=== PATIENT | male | born 1985 | race Caucasian/White ===

== ENCOUNTER 2018-10-08 19:07 | Inpatient (IN) | payer SELFPAY ==
[~2018-10-08 19:07] MED LIST: EPINEPHRINE INJ/PF 1 MG/1 ML AMPULE ONE; ETOMIDATE INJ/PF 20 MG/10 ML SDV IV ONE; SUCCINYLCHOLINE CHLORIDE INJ 200 MG/10 ML VIAL ONE
[2018-10-08] MEDS ORDERED: EPINEPHRINE INJ/PF 1 MG/1 ML AMPULE ONE (19:36)
[2018-10-08] MEDS ORDERED: RACEPINEPHRINE HCL 2.25% NEB 0.5 ML AMPUL NEB ONE (19:44)
--- NOTE | 2018-10-08 19:48 | RADIOLOGY REPORT (SQ) ---
EXAM DESCRIPTION: CHEST SINGLE VIEW COMPLETED DATE/TIME: 10/08/2018 7:39 pm REASON FOR STUDY: difficulty breathing COMPARISON: Chest x-ray 03/01/2018 EXAM PARAMETERS: NUMBER OF VIEWS: One view. TECHNIQUE: Single frontal radiographic view of the chest acquired. RADIATION DOSE: NA LIMITATIONS: None. FINDINGS: LUNGS AND PLEURA: No consolidation, pneumothorax or pleural effusion. MEDIASTINUM AND HILAR STRUCTURES: No masses. Contour normal. HEART AND VASCULAR STRUCTURES: The heart is upper normal limit in size. No overt vascular congestion . BONES: No acute findings. HARDWARE: None in the chest. IMPRESSION: NO ACUTE RADIOGRAPHIC FINDING IN THE CHEST. TECHNICAL DOCUMENTATION: JOB ID: [id number] [employer]- All Rights Reserved Reading location - IP/workstation name: [email or web address]
[2018-10-08] MEDS ORDERED: ALBUTEROL SULFATE 0.083% NEB 2.5 MG/3 ML AMPUL NEB ONE (19:54)
--- NOTE | 2018-10-08 19:55 | ER Document Report ---
ED General - General Stated Complaint: TROUBLE BREATHING Time Seen by Provider: 10/08/18 19:40 Cannot obtain history due to: Unstable vital signs Notes: Patient is a 33-year-old male with a past history of sleep apnea, hyperlipidemia, presents in severe distress, hypotensive, unable to provide reasonable history. EMS reports that he was bit by fire ants, went to [facility] [employer] to buy Benadryl. Staff there noted he looked very unwell, followed him out to his vehicle and 911 was called. EMS states that when they got there the patient was minimally responsive, did not have a palpable radial pulse and they could not obtain a blood pressure. Initial oxygen saturations were in the 70s. No history of similar episodes apparently in the past. History was otherwise very limited secondary to the degree of the patient's hemodynamic instability on presentation. TRAVEL OUTSIDE OF THE [place] IN LAST 30 DAYS: No - Related Data Allergies/Adverse Reactions: fire ant Allergy (Severe, Verified 10/08/18 20:35) Anaphylaxis Past Medical History - General Information source: Emergency Med Personnel Cannot obtain history due to: Unstable vital signs, Altered mental status - Social History Smoking Status: Unknown if Ever Smoked Family History: CAD, Hypertension Neurological Medical History: Denies: Hx Migraine, Hx Seizures Endocrine Medical History: Denies: Hx Diabetes Mellitus Type 1, Hx Diabetes Mellitus Type 2, Hx Hyperthyroidism, Hx Hypothyroidism Renal/ Medical History: Denies: Hx Peritoneal Dialysis GI Medical History: Reports: Hx Gastroesophageal Reflux Disease Musculoskeletal Medical History: Denies Hx Fibromyalgia, Denies Hx Gout Review of Systems - Review of Systems Notes: Constitutional: Negative for fever. HENT: Negative for sore throat. Eyes: Negative for visual changes. Cardiovascular: Negative for chest pain. Respiratory: Positive shortness of breath Gastrointestinal: Negative for abdominal pain, positive for nausea Genitourinary: Negative for dysuria. Musculoskeletal: Negative for back pain. Skin: Positive for rash. Neurological: Negative for headaches, weakness or numbness. 10 point ROS negative except as marked above and in HPI. Physical Exam - Vital signs Vitals: Pulse Resp BP Pulse Ox 119 H 35 H 143/117 H 94 10/08/18 19:07 10/08/18 19:07 10/08/18 19:07 10/08/18 19:07 Interpretation: Hypotensive, Tachycardic, Hypoxic, Tachypneic Notes: PHYSICAL EXAMINATION: GENERAL: Extremely ill in appearance, pale, diaphoretic somewhat listless HEAD: Atraumatic, normocephalic. EYES: Pupils equal round and reactive to light, extraocular movements intact, sc dennis anicteric, conjunctiva are normal. ENT: nares patent, oropharynx clear without exudates. Mildly dry mucous membranes. NECK: Normal range of motion, supple without lymphadenopathy LUNGS: Moderate tachypnea, scattered wheezing in all lung carreon with diminished air movement throughout. HEART: Regular tachycardia without murmurs ABDOMEN: Soft, nontender, normoactive bowel sounds. No guarding, no rebound. No masses appreciated. EXTREMITIES: Normal range of motion, no pitting or edema. No cyanosis. NEUROLOGICAL: No focal neurological deficits. Moves all extremities spontaneously and on command. PSYCH: Somewhat listless but answers all questions SKIN: Cool, pale, diaphoretic skin Course - Re-evaluation Re-evalutation: 10/08/18 19:48 Documentation is delayed as I been at this patient's bedside continuously since arrival to the emergency department. Patient presents as a severe anaphylactic reaction. EMS reports that initially the patient had no palpable radial pulse, they could not obtain a blood pressure, he was not moving air, covered diffusely in hives after being bit by fire ants. Patient was itching profusely. Was given famotidine, Benadryl, Solu-Medrol and 3 shots of intramuscular epinephrine . He was also given an IV push of IV epinephrine 100 mcg. He did have significant improvement of his blood pressure, initially saturating 70% on room air, gradually improved into the upper 80s low 90s. On arrival the patient is pale, diaphoretic, extremely ill in appearance. He is saturating in the mid 80s on a continuous nebulized albuterol inhaler with ongoing oxygen supplementation. Immediately upon arrival the patient was noted to be hypotensive systolics in the 90s. He was connected to an IV epinephrine infusion which has been continuously running since arrival. The patient's blood pressure did normalize, has maintained into the 130s-140s however he continues to be persistently h ypoxic. Patient was initially trialed on nasal cannula, nonrebreather and then initially transitioned to. However despite the patient's blood pressure does continue to be acceptable ranges is saturations continue to range from 88-90 on 100% FiO2 12 on 6. Chest x-ray without any evidence of pneumothorax, infiltrate or pulmonary edema. EKG without ischemic changes. The patient is critically ill, I continue to remain at his bedside almost on a continuous basis at this time. 10/08/18 19:59 Patient is becoming fatigued, stating it is harder for him to continue breathing. His oxygen saturations despite 100% FiO2 16 on 6 BiPAP settings will not improve beyond 88%. Patient's blood pressure has responded appropriately to his epinephrine infusion 163/69 currently he continues to be without any significant stridor or wheezing. The clinical picture is extremely consistent with anaphylaxis although his response to epinephrine in terms of his respiratory status is suboptimal. I have considered alternative diagnoses such as a pulmonary embolus but this does not make clinical sense as the patient is not having any pleuritic pain, had hives on initial presentation with EMS, symptoms are immediate after being bit by fire ants, the chest x-ray does not demonstrate any evidence of pneumothorax or infiltrates. He does not have any pulmonary edema. I am concerned about proceeding with intubation as patient is hypoxic to start with and has multiple airway risk factors including obesity, a antoine, and is high risk for we will continue to keep BiPAP on patient continuously during the episode and put on nasal cannula on to continue supplemental oxygen during rSI. 10/08/18 20:19 RSI was held off as as I was beginning to prep to shave the patient's neck, applied with ChloraPrep in the event that a cricothyrotomy would be necessitated, getting airway, and ready the patient saturations abruptly increased to 100%. The patient had been pulling good tidal volumes on BiPAP and I do not believe that this was him going from being somewhat awake as he had continued to be speaking and breathing the entire time. It appears that we may have finally got over the flexor cascade with aggressive dosing of epinephrine is appearing to normalize all of his vitals. We are weaning down his FiO2 and will begin to wean his epinephrine infusion. Patient does remain in very guarded condition but I do not believe he requires RSI this time. 10/08/18 20:50 Continue to assess the patient at regular intervals. His epinephrine drip has been weaned although is not yet completely off. He is saturating 94% on 30% FiO2 by BiPAP. I will transition him to nasal cannula, continue epinephrine drip and continue the slow weaning process. 10/08/18 20:56 I have taken the patient off BiPAP, started on 3 L nasal cannula and saturations of 95-96%. After 141/101 on epinephrine infusion. Will continue to titrate off. 10/08/18 21:27 Patient began to have some throat tightness, saturations decreased to 91% on 3 L by nasal cannula. His epinephrine drip was titrated and he had complete normalization saturations back to 98% at this time. He states this likewise immediately resolved his throat tightness. Will continue to keep the epinephrine infusion at the increased rate. 10/08/18 21:58 Patient's blood pressure remains in acceptable range at 139 on 69 although he continues on epinephrine infusion. Saturating 96-99% on 3 L by nasal cannula. Continue to work to down titrate epinephrine. 10/08/18 22:43 Patient's epinephrine drip has been shut off for a total of 43 minutes. Patient is tolerating this well. He was placed back on BiPAP as when he falls asleep and he does have sleep apnea baseline his saturations do fall into the 80s. When I wake him up on the nasal cannula he immediately saturates back to normal levels. He does wear BiPAP at home and this is been replaced so that he can avoid hypoxic events while sleeping. I discussed this case with Dr. Ceron who has accepted the patient to the ICU. - Vital Signs Vital signs: Temp Pulse Resp BP Pulse Ox 98.9 F 112 H 20 138/81 H 97 10/09/18 01:46 10/09/18 01:46 10/09/18 03:00 10/09/18 02:38 10/09/18 03:00 - Laboratory Result Diagrams: 10/09/18 03:02 10/09/18 03:02 Laboratory results interpreted by me: 10/08/18 10/08/18 19:09 19:09 WBC 21.6 H RBC 5.64 H Hgb 17.6 H Hct 51.8 H Abs Neuts (Manual) 11.9 H Abs Lymphs (Manual) 7.8 H Potassium 3.2 L Carbon Dioxide 15 L Glucose 226 H - EKG Interpretation by Me Additional EKG results interpreted by me: 10/09/18 05:10 Sinus tachycardia, rate 118. No ST elevations or depressions. QTC is 466. Critical Care Note - Critical Care Note Total time excluding time spent on procedures (mins): 120 Comments: Critical care time spent obtaining history from patient or surrogate, discussions with consultants, development of treatment plan with patient or surrogate, evaluation of patient's response to treatment, examination of patient, ordering and performing treatments and interventions, ordering and review of laboratory studies, re-evaluation of patient's condition, ordering and review of radiographic studies and review of old charts Discharge - Discharge Clinical Impression: Anaphylactic shock, Acute respiratory failure with hypoxia Condition: Fair Disposition: ADMITTED INPATIENT Admitting Provider: Osmany (Hospitalist) Unit Admitted: ICU
[2018-10-08] MEDS ORDERED: ETOMIDATE INJ/PF 20 MG/10 ML SDV IV ONE (19:58)
[2018-10-08] MEDS ORDERED: PROPOFOL 0 MG/0 ML INFUS..BTL IV ONE (20:05)
[2018-10-08 20:07] LABS: HEMATOCRIT 51.8 % (37.9-51.0); HEMOGLOBIN 17.6 g/dL (13.5-17.0); MEAN CORPUSCULAR HEMOGLOBIN 31.1 pg (27.0-33.4); MEAN CORPUSCULAR HGB CONC 33.9 g/dL (32.0-36.0); MEAN CORPUSCULAR VOLUME 92 fl (80-97); PLATELET COUNT 428 10^3/uL (150-450); RED BLOOD COUNT 5.64 10^6/uL (4.35-5.55); RED CELL DISTRIBUTION WIDTH 12.9 % (11.5-14.0); WHITE BLOOD COUNT 21.6 10^3/uL (4.0-10.5)
[2018-10-08 20:17] LABS: ANION GAP 17 (5-19); BLOOD UREA NITROGEN 14 mg/dL (7-20); CALCIUM 9.2 mg/dL (8.4-10.2); CARBON DIOXIDE 15 mmol/L (22-30); CHLORIDE 107 mmol/L (98-107); GLUCOSE 226 mg/dL (75-110); POTASSIUM 3.2 mmol/L (3.6-5.0); SODIUM 139.2 mmol/L (137-145)
[2018-10-08 20:23] LABS: ABSOLUTE LYMPHOCYTES# (MANUAL) 7.8 10^3/uL (0.5-4.7); ABSOLUTE MONOCYTES # (MANUAL) 1.3 10^3/uL (0.1-1.4); ABSOLUTE NEUTROPHILS# (MANUAL) 11.9 10^3/uL (1.7-8.2); BASOPHILS % (MANUAL) 0 % (0-2); EOSINOPHILS % (MANUAL) 3 % (0-6); LYMPHOCYTES % (MANUAL) 36 % (13-45); MONOCYTES % (MANUAL) 6 % (3-13); SEGMENTED NEUTROPHILS % (MAN) 55 % (42-78); TOTAL CELLS COUNTED 100
[2018-10-08 20:24] LABS: PLATELET COMMENT ADEQUATE
[2018-10-08 20:28] LABS: RBC MORPHOLOGY COMMENT NORMO-CYTIC/CHROMIC
[2018-10-08] MEDS ORDERED: ONDANSETRON HCL INJ/PF 4 MG/2 ML SDV IV PRN (22:50)
[2018-10-08] MEDS ORDERED: IPRATROPIUM/ALBUTEROL 0.5-2.5 MG/3 ML AMPUL NEB PRN (22:50)
[2018-10-08] MEDS ORDERED: ACETAMINOPHEN 650 MG SUPP.RECT PR PRN (22:50)
[2018-10-08] MEDS ORDERED: FAMOTIDINE INJ/PF 20 MG/2 ML SDV IV ONE (23:00)
[2018-10-08] MEDS ORDERED: METHYLPREDNISOLONE INJ 125 MG/2 ML SDV IV ONE (23:00)
[2018-10-08] MEDS: POTASSI CL 20 MEQ/50 ML RIDER 20 MEQ/50 ML RTUPB IV SCH (23:16)
[2018-10-08] MEDS: DIPHENHYDRAMINE HCL 50 MG/ML VIAL IV PRN (23:25)
[2018-10-09] MEDS ORDERED: PANTOPRAZOLE SODIUM 40 MG VIAL IV ONE (00:15)
[2018-10-09] MEDS ORDERED: METOPROLOL TARTRATE PF/INJ 5 MG/5 ML SDV IV ONE (00:17)
[2018-10-09] MEDS: IPRATROPIUM/ALBUTEROL 0.5-2.5 MG/3 ML AMPUL NEB SCH ×3 (00:37→16:10)
[2018-10-09] MEDS: POTASSI CL 20 MEQ/50 ML RIDER 20 MEQ/50 ML RTUPB IV SCH (02:38)
--- NOTE | 2018-10-09 03:19 | PDOC H&P ---
History of Present Illness Admission Date/PCP: 10/08/18 23:19 Patient complains of: Shortness of breath History of Present Illness: CHARLINE AMBROSE is a 33 year old male with a past medical history of hypertension, dyslipidemia, GERD and morbid obesity without current medications presents with severe anaphylactic reaction after envenomation by fire ants. Patient developed widespread and diffuse hives, generalized pruritus followed by shortness of breath prompting evaluation emergency room where he is found to have severe respiratory distress, tachypnea, tachycardia requiring 2 mg of IV epinephrine, Pepcid, Benadryl, Solu-Medrol. He is referred to the hospitalist for admission. Patient denies previous anaphylactic reaction, and is without known triggers of allergic reaction. He denies new medications and is otherwise felt well. During interview patient complains of chest pain somewhat reminiscent of uncontrolled GERD. He receives 5 mg of IV Lopressor, and Protonix. EKG is unremarkable. Past Medical History Cardiac Medical History: Reports: Hyperlipidema, Hypertension Neurological Medical History: Denies: Migraine, Seizures Endocrine Medical History: Reports: Obesity Denies: Diabetes Mellitus Type 1, Diabetes Mellitus Type 2, Hyperthyroidism, Hypothyroidism GI Medical History: Reports: Gastroesophageal Reflux Disease Musculoskeltal Medical History: Denies: Fibromyalgia, Gout Hematology: Reports: Anemia Social History Information Source: Patient, Emergency Med Personnel, [facility] Records Smoking Status: Current Some Day Smoker Frequency of Alcohol Use: Occasional Hx Recreational Drug Use: No Drugs: None Hx Prescription Drug Abuse: No - Advance Directive Resuscitation Status: Full Code Family History Family History: CAD, Hypertension Parental Family History Reviewed: Yes Children Family History Reviewed: Yes Sibling(s) Family History Reviewed.: Yes Medication/Allergy Home Medications: No Home Medications 10/08/18 Allergies/Adverse Reactions: fire ant Allergy (Severe, Verified 10/08/18 20:35) Anaphylaxis Review of Systems Constitutional: ABSENT: chills, fever(s), headache(s), weight gain, weight loss Eyes: ABSENT: visual disturbances Ears: ABSENT: hearing changes Cardiovascular: ABSENT: chest pain, dyspnea on exertion, edema, orthropnea, palpitations Respiratory: ABSENT: cough, hemoptysis Gastrointestinal: ABSENT: abdominal pain, constipation, diarrhea, hematemesis, hematochezia, nausea, vomiting Genitourinary: ABSENT: dysuria, hematuria Musculoskeletal: ABSENT: joint swelling Integumentary: ABSENT: rash, wounds Neurological: ABSENT: abnormal gait, abnormal speech, confusion, dizziness, foc al weakness, syncope Psychiatric: ABSENT: anxiety, depression, homidical ideation, suicidal ideation Endocrine: ABSENT: cold intolerance, heat intolerance, polydipsia, polyuria Hematologic/Lymphatic: ABSENT: easy bleeding, easy bruising Physical Exam Vital Signs: Temp Pulse Resp BP Pulse Ox 98.9 F 112 H 20 138/81 H 97 10/09/18 01:46 10/09/18 01:46 10/09/18 03:00 10/09/18 02:38 10/09/18 03:00 Intake & Output 10/07/18 10/08/18 10/09/18 11:59 11:59 11:59 Intake Total 50 Output Total 325 Balance -275 Weight 158.3 kg General appearance: PRESENT: cooperative, mild distress, morbidly obese, other - Diaphoretic Head exam: PRESENT: atraumatic, normocephalic Eye exam: PRESENT: conjunctiva pink, EOMI, PERRLA. ABSENT: scleral icterus Ear exam: PRESENT: normal external ear exam Mouth exam: PRESENT: moist, tongue midline Neck exam: ABSENT: carotid bruit, JVD, lymphadenopathy, thyromegaly Respiratory exam: PRESENT: clear to auscultation woody, symmetrical, tachypnea. ABSENT: rales, rhonchi, wheezes Cardiovascular exam: PRESENT: gallop, +S1, +S2, tachycardia Pulses: PRESENT: normal dorsalis pedis pul Vascular exam: PRESENT: normal capillary refill GI/Abdominal exam: PRESENT: normal bowel sounds, soft. ABSENT: distended, guarding, mass, organolmegaly, rebound, tenderness Rectal exam: PRESENT: deferred Extremities exam: PRESENT: full ROM. ABSENT: calf tenderness, clubbing, pedal edema Neurological exam: PRESENT: alert, awake, oriented to person, oriented to place, oriented to time, oriented to situation, CN II-XII grossly intact. ABSENT: motor sensory deficit Psychiatric exam: PRESENT: appropriate affect, normal mood. ABSENT: homicidal ideation, suicidal ideation Skin exam: PRESENT: dry, intact, warm. ABSENT: cyanosis, rash Results Laboratory Results: 10/08/18 19:09 10/08/18 19:09 10/08/18 10/08/18 10/08/18 19:09 19:09 19:09 WBC 21.6 H RBC 5.64 H Hgb 17.6 H Hct 51.8 H MCV 92 MCH 31.1 MCHC 33.9 RDW 12.9 Plt Count 428 Seg Neutrophils % Not Reportable Lymphocytes % Not Reportable Monocytes % Not Reportable Eosinophils % Not Reportable Basophils % Not Reportable Absolute Neutrophils Not Reportable Absolute Lymphocytes Not Reportable Absolute Monocytes Not Reportable Absolute Eosinophils Not Reportable Absolute Basophils Not Reportable Sodium 139.2 Potassium 3.2 L Chloride 107 Carbon Dioxide 15 L Anion Gap 17 BUN 14 Creatinine 1.16 Est GFR ( Amer) > 60 Est GFR (Non-Af Amer) > 60 Glucose 226 H Calcium 9.2 Magnesium 2.0 Impressions: Chest X-Ray 10/08/18 00:00 IMPRESSION: NO ACUTE RADIOGRAPHIC FINDING IN THE CHEST. Assessment and Plan - Diagnosis (1) Anaphylactic shock Is this a current diagnosis for this admission?: Yes Plan: ICU admission, as needed epinephrine IM, continue Pepcid, Benadryl, Solu-Medrol. Education for avoidance of fire ants. (2) Acute respiratory failure with hypoxia Is this a current diagnosis for this admission?: Yes Plan: Secondary to #1, supplemental oxygen, incentive spirometry, n.p.o. times 6 hours. (3) Chest pain at rest Is this a current diagnosis for this admission?: Yes Plan: Complicated by anaphylaxis, tachycardia, risk factors for coronary artery disease and noncompliance of medical management of chronic hypertension, dyslipidemia and tobacco dependence. Follow-up serial cardiac enzymes (4) Hyperlipidemia Qualifiers: Hyperlipidemia type: mixed hyperlipidemia Qualified Code(s): E78.2 - Mixed hyperlipidemia Is this a current diagnosis for this admission?: Yes Plan: Lipitor (5) Morbid obesity Is this a current diagnosis for this admission?: Yes Plan: Morbid obesity will evaluate for metabolic cause with evaluation of thyroid function and dietitian consultation (6) Tobacco abuse disorder Is this a current diagnosis for this admission?: Yes Plan: Tobacco Dependence patient received tobacco cessation counseling and offered nicotine replacement options - Time Time Spent with patient: 35 or more minutes - Inpatient Certification Medical Necessity: Need Close Monitoring Due to Risk of Patient Decompensation
[2018-10-09 03:34] LABS: HEMATOCRIT 50.9 % (37.9-51.0); HEMOGLOBIN 17.3 g/dL (13.5-17.0); MEAN CORPUSCULAR HEMOGLOBIN 30.8 pg (27.0-33.4); MEAN CORPUSCULAR HGB CONC 33.9 g/dL (32.0-36.0); MEAN CORPUSCULAR VOLUME 91 fl (80-97); PLATELET COUNT 284 10^3/uL (150-450); RED BLOOD COUNT 5.61 10^6/uL (4.35-5.55); RED CELL DISTRIBUTION WIDTH 12.5 % (11.5-14.0); WHITE BLOOD COUNT 19.1 10^3/uL (4.0-10.5)
[2018-10-09 03:57] LABS: CREATINE KINASE MB 3.67 ng/mL (<4.55)
[2018-10-09 03:58] LABS: ABSOLUTE LYMPHOCYTES# (MANUAL) 0.8 10^3/uL (0.5-4.7); ABSOLUTE MONOCYTES # (MANUAL) 1.1 10^3/uL (0.1-1.4); ABSOLUTE NEUTROPHILS# (MANUAL) 17.2 10^3/uL (1.7-8.2); BASOPHILS % (MANUAL) 0 % (0-2); EOSINOPHILS % (MANUAL) 0 % (0-6); LYMPHOCYTES % (MANUAL) 4 % (13-45); METAMYELOCYTES % (MANUAL) 1 % (0); MONOCYTES % (MANUAL) 6 % (3-13); SEGMENTED NEUTROPHILS % (MAN) 78 % (42-78); TOTAL CELLS COUNTED 100; TROPONIN I 0.159 ng/mL
[2018-10-09 04:00] LABS: PLATELET CLUMPS PRESENT
[2018-10-09 04:04] LABS: BAND NEUTROPHILS % (MANUAL) 11 % (3-5); RBC MORPHOLOGY COMMENT NORMO-CYTIC/CHROMIC
[2018-10-09 04:09] LABS: ANION GAP 10 (5-19); BLOOD UREA NITROGEN 16 mg/dL (7-20); CALCIUM 9.1 mg/dL (8.4-10.2); CARBON DIOXIDE 20 mmol/L (22-30); CHLORIDE 107 mmol/L (98-107); GLUCOSE 290 mg/dL (75-110); SODIUM 137.1 mmol/L (137-145)
[2018-10-09 04:34] LABS: POTASSIUM 5.3 mmol/L (3.6-5.0)
[2018-10-09] MEDS: HEPARIN SOD (PORCINE) 5,000 UNIT/ML 1 ML SYRINGE SUBCUT SCH ×3 (05:31→21:52)
[2018-10-09] MEDS ORDERED: METHYLPREDNISOLONE INJ 125 MG/2 ML SDV IV SCH ×2 (06:00→14:00)
[2018-10-09] MEDS: DIPHENHYDRAMINE HCL 50 MG/ML VIAL IV PRN ×4 (08:07→21:58)
[2018-10-09 10:44] LABS: CREATINE KINASE MB 3.36 ng/mL (<4.55); TROPONIN I 0.097 ng/mL
[2018-10-09] MEDS: FAMOTIDINE INJ/PF 20 MG/2 ML SDV IV SCH ×2 (11:05→21:58)
[2018-10-09] MEDS ORDERED: ACETAMINOPHEN 325 MG TABLET PO PRN (11:06)
[2018-10-09] MEDS ORDERED: METHYLPREDNISOLONE INJ 40 MG/1 ML SDV IV SCH (14:00)
[2018-10-09] MEDS ORDERED: DEXTROSE 40% GEL 15 GM TUBE PO PRN (15:30)
[2018-10-09] MEDS ORDERED: GLUCAGON,HUMAN RECOMB 1 MG INJ IM PRN (15:30)
[2018-10-09] MEDS ORDERED: DEXTROSE 50%-WATER SYRINGE 25 GM/50 ML DOSE IV PRN (15:30)
[2018-10-09] MEDS ORDERED: DEXTROSE 50%-WATER SYRINGE 12.5 GM/25 ML DOSE IV PRN (15:30)
[2018-10-09] MEDS ORDERED: DEXTROSE 40% GEL 15 GM TUBE X 2 PO PRN (15:30)
--- NOTE | 2018-10-09 15:48 | PDOC PROGRESS REPORT ---
Subjective Progress Note for:: 10/09/18 Subjective:: This is a 33 yr old male with a PMH of HTN, hyperlipidemia, GERD, morbid obesity and YUNG (says not able to afford a CPAP due to insurance issues) who developed acute SOB, generalized hives and pruritus after being bitten by fireants. He was in severe respiratory distress in the ER and intubation was considered initially but he responded well to epinephrine, solumedrol and diphenhydramine and was kept on BIPAP. His lowest saturation in the ER was 86%. No acute event overnight. He is saturating well on BIPAP on encounter. Hives have resolved but stigmata of fireant bites on the legs are still apparent. He says his breathing is much better now. He still complains of some pruritus. Denies sensation of tightness on the throat. Reason For Visit: ANAPHYLAXIS YUNG Physical Exam Vital Signs: Temp Pulse Resp BP Pulse Ox 97.7 F 100 20 119/50 L 94 10/09/18 12:00 10/09/18 12:00 10/09/18 14:39 10/09/18 14:39 10/09/18 14:39 Intake & Output 10/08/18 10/09/18 10/10/18 06:59 06:59 06:59 Intake Total 50 50 Output Total 325 680 Balance -275 -630 Weight 348 lb 15.868 oz General appearance: PRESENT: no acute distress, well-developed, well-nourished Head exam: PRESENT: atraumatic, normocephalic Eye exam: PRESENT: conjunctiva pink, EOMI, PERRLA. ABSENT: scleral icterus Ear exam: PRESENT: normal external ear exam Mouth exam: PRESENT: moist, tongue midline Neck exam: ABSENT: carotid bruit, JVD, lymphadenopathy, thyromegaly Respiratory exam: PRESENT: clear to auscultation woody. ABSENT: rales, rhonchi, wheezes Cardiovascular exam: PRESENT: RRR. ABSENT: diastolic murmur, rubs, systolic murmur Pulses: PRESENT: normal dorsalis pedis pul GI/Abdominal exam: PRESENT: normal bowel sounds, soft. ABSENT: distended, guarding, mass, organolmegaly, rebound, tenderness Rectal exam: PRESENT: deferred Neurological exam: PRESENT: alert, awake, oriented to person, oriented to place, oriented to time, oriented to situation, CN II-XII grossly intact. ABSENT: motor sensory deficit Results Laboratory Results: 10/09/18 03:02 10/09/18 03:02 10/08/18 10/08/18 10/08/18 19:09 19:09 19:09 WBC 21.6 H RBC 5.64 H Hgb 17.6 H Hct 51.8 H MCV 92 MCH 31.1 MCHC 33.9 RDW 12.9 Plt Count 428 Seg Neutrophils % Not Reportable Lymphocytes % Not Reportable Monocytes % Not Reportable Eosinophils % Not Reportable Basophils % Not Reportable Absolute Neutrophils Not Reportable Absolute Lymphocytes Not Reportable Absolute Monocytes Not Reportable Absolute Eosinophils Not Reportable Absolute Basophils Not Reportable Sodium 139.2 Potassium 3.2 L Chloride 107 Carbon Dioxide 15 L Anion Gap 17 BUN 14 Creatinine 1.16 Est GFR ( Amer) > 60 Est GFR (Non-Af Amer) > 60 Glucose 226 H Calcium 9.2 Magnesium 2.0 10/09/18 10/09/18 03:02 03:02 WBC 19.1 H RBC 5.61 H Hgb 17.3 H Hct 50.9 MCV 91 MCH 30.8 MCHC 33.9 RDW 12.5 Plt Count 284 Seg Neutrophils % Not Reportable Lymphocytes % Not Reportable Monocytes % Not Reportable Eosinophils % Not Reportable Basophils % Not Reportable Absolute Neutrophils Not Reportable Absolute Lymphocytes Not Reportable Absolute Monocytes Not Reportable Absolute Eosinophils Not Reportable Absolute Basophils Not Reportable Sodium 137.1 Potassium 5.3 H D Chloride 107 Carbon Dioxide 20 L Anion Gap 10 BUN 16 Creatinine 1.04 Est GFR ( Amer) > 60 Est GFR (Non-Af Amer) > 60 Glucose 290 H Calcium 9.1 Magnesium 10/09/18 10/09/18 10/09/18 03:02 03:02 09:57 Creatine Kinase 141 102 CK-MB (CK-2) 3.67 Troponin I 0.159 10/09/18 09:57 Creatine Kinase CK-MB (CK-2) 3.36 Troponin I 0.097 Impressions: Chest X-Ray 10/08/18 00:00 IMPRESSION: NO ACUTE RADIOGRAPHIC FINDING IN THE CHEST. Assessment and Plan - Diagnosis (1) Acute respiratory failure with hypoxia Is this a current diagnosis for this admission?: Yes Plan: Secondary to anaphylaxis. Wean off BIPAP. (2) Anaphylactic reaction Is this a current diagnosis for this admission?: Yes Plan: Improving. Reduce solumedrol from 125 to 40 mg q8h. Continue diphehydramine. (3) YUNG (obstructive sleep apnea) Is this a current diagnosis for this admission?: Yes Plan: He says he is not able to afford a CPAP due to insurance issues. BIPAP during sleep and at night. (4) Elevated troponin Is this a current diagnosis for this admission?: Yes Plan: EKG is unremarkable. Likely from demand ischemia from anaphylaxis. - Time Time Spent with patient: 25-34 minutes
[2018-10-09] MEDS ORDERED: HYDROXYZINE HCL 10 MG TABLET PO ONE (16:15)
[2018-10-09] MEDS ORDERED: RACEPINEPHRINE HCL 2.25% NEB 0.5 ML AMPUL NEB ONE (16:30)
[2018-10-09] MEDS ORDERED: METHYLPREDNISOLONE INJ 40 MG/1 ML SDV IV ONE (16:30)
[2018-10-09] MEDS: INSULIN LISPRO 100 UNIT/ML 3 ML VIAL SUBCUT SCH ×2 (17:30→22:10)
[2018-10-09 18:19] LABS: CREATINE KINASE MB 3.3 ng/mL (<4.55); TROPONIN I 0.059 ng/mL
[2018-10-09] MEDS ORDERED: HYDROXYZINE HCL 10 MG TABLET ONE (19:58)
[2018-10-09] MEDS: HYDROXYZINE HCL 10 MG TABLET PO PRN (20:01)
[2018-10-09] MEDS: METHYLPREDNISOLONE INJ 125 MG/2 ML SDV IV SCH (21:59)
--- NOTE | 2018-10-09 23:47 | EKG REPORT ---
SEVERITY:- OTHERWISE NORMAL ECG - SINUS TACHYCARDIA : Confirmed by: Emma Oropeza 09-Oct-2018 23:46:55
--- NOTE | 2018-10-09 23:47 | EKG REPORT ---
SEVERITY:- OTHERWISE NORMAL ECG - SINUS TACHYCARDIA : Confirmed by: Emma Oropeza 09-Oct-2018 23:46:59
[2018-10-10] MEDS: IPRATROPIUM/ALBUTEROL 0.5-2.5 MG/3 ML AMPUL NEB SCH ×3 (00:35→15:54)
[2018-10-10] MEDS: DIPHENHYDRAMINE HCL 50 MG/ML VIAL IV PRN ×4 (06:39→19:41)
[2018-10-10] MEDS: METHYLPREDNISOLONE INJ 125 MG/2 ML SDV IV SCH (06:39)
[2018-10-10] MEDS: HEPARIN SOD (PORCINE) 5,000 UNIT/ML 1 ML SYRINGE SUBCUT SCH ×3 (06:40→21:12)
[2018-10-10] MEDS: INSULIN LISPRO 100 UNIT/ML 3 ML VIAL SUBCUT SCH ×4 (08:25→21:11)
[2018-10-10 08:52] LABS: ANION GAP 5 (5-19); BLOOD UREA NITROGEN 14 mg/dL (7-20); CALCIUM 9.8 mg/dL (8.4-10.2); CARBON DIOXIDE 26 mmol/L (22-30); CHLORIDE 107 mmol/L (98-107); GLUCOSE 179 mg/dL (75-110); POTASSIUM 4.8 mmol/L (3.6-5.0); SODIUM 138.1 mmol/L (137-145)
[2018-10-10] MEDS: FAMOTIDINE INJ/PF 20 MG/2 ML SDV IV SCH ×2 (09:14→21:08)
[2018-10-10 10:17] LABS: HEMATOCRIT 39.9 % (37.9-51.0); MEAN CORPUSCULAR HEMOGLOBIN 31.1 pg (27.0-33.4); MEAN CORPUSCULAR HGB CONC 33.7 g/dL (32.0-36.0); MEAN CORPUSCULAR VOLUME 92 fl (80-97); PLATELET COUNT 282 10^3/uL (150-450); RED BLOOD COUNT 4.33 10^6/uL (4.35-5.55); RED CELL DISTRIBUTION WIDTH 12.9 % (11.5-14.0); WHITE BLOOD COUNT 21.5 10^3/uL (4.0-10.5)
[2018-10-10 10:34] LABS: HEMOGLOBIN 13.4 g/dL (13.5-17.0)
[2018-10-10 10:57] LABS: ABSOLUTE LYMPHOCYTES# (MANUAL) 0.6 10^3/uL (0.5-4.7); ABSOLUTE MONOCYTES # (MANUAL) 0.2 10^3/uL (0.1-1.4); ABSOLUTE NEUTROPHILS# (MANUAL) 20.6 10^3/uL (1.7-8.2); BASOPHILS % (MANUAL) 0 % (0-2); EOSINOPHILS % (MANUAL) 0 % (0-6); LYMPHOCYTES % (MANUAL) 2 % (13-45); MONOCYTES % (MANUAL) 1 % (3-13); SEGMENTED NEUTROPHILS % (MAN) 96 % (42-78); TOTAL CELLS COUNTED 100
[2018-10-10 11:00] LABS: PLATELET COMMENT ADEQUATE; POLYCHROMASIA SLIGHT
[2018-10-10] MEDS: METHYLPREDNISOLONE INJ 40 MG/1 ML SDV IV SCH ×2 (13:45→21:08)
[2018-10-10] MEDS: HYDROXYZINE HCL 10 MG TABLET PO PRN (14:21)
[2018-10-10 14:27] LABS: PATH REVIEW PATHOLOGIST REVIEWED
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
[2018-10-11] MEDS: IPRATROPIUM/ALBUTEROL 0.5-2.5 MG/3 ML AMPUL NEB SCH ×3 (00:34→16:01)
[2018-10-11] MEDS: DIPHENHYDRAMINE HCL 50 MG/ML VIAL IV PRN ×2 (01:19→05:23)
[2018-10-11] MEDS: HEPARIN SOD (PORCINE) 5,000 UNIT/ML 1 ML SYRINGE SUBCUT SCH ×2 (05:21→13:34)
[2018-10-11] MEDS: METHYLPREDNISOLONE INJ 40 MG/1 ML SDV IV SCH (05:23)
[2018-10-11] MEDS: INSULIN LISPRO 100 UNIT/ML 3 ML VIAL SUBCUT SCH ×2 (09:14→11:28)
[2018-10-11] MEDS: FAMOTIDINE INJ/PF 20 MG/2 ML SDV IV SCH (09:20)
[2018-10-11] MEDS: DIPHENHYDRAMINE HCL 25 MG CAPSULE PO SCH ×2 (09:20→13:34)
[2018-10-11] MEDS ORDERED: PREDNISONE 20 MG TABLET PO SCH (10:00)
[2018-10-11] MEDS ORDERED: CLOPIDOGREL BISULFATE 75 MG TABLET PO SCH (13:30)
[2018-10-11 17:09] VITALS: BP 143/117
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
== END 2018-10-11 17:25 | disposition home or self-care (01) | DRG 917 ==
LOC: ER 19:07 → EH 23:19 → ICU 10-09 01:35 → 3W 10-10 22:36
PROVIDERS: ADMIT Internal Medicine; ATTEND Internal Medicine
PROC: 5A09357 Assistance with Respiratory Ventilation, Less than 24 Consecutive Hours, Continuous Positive Airway Pressure (ICD-10-PCS; principal; 2018-10-08)
DX: T63.421A Toxic effect of venom of ants, accidental (unintentional), initial encounter (principal); J96.01 Acute respiratory failure with hypoxia; T78.2XXA Anaphylactic shock, unspecified, initial encounter; Z68.41 Body mass index [BMI] 40.0-44.9, adult; E66.01 Morbid (severe) obesity due to excess calories; R74.8 Abnormal levels of other serum enzymes; G47.33 Obstructive sleep apnea (adult) (pediatric); R73.03 Prediabetes; I10 Essential (primary) hypertension; E78.5 Hyperlipidemia, unspecified; K21.9 Gastro-esophageal reflux disease without esophagitis; D64.9 Anemia, unspecified; F17.200 Nicotine dependence, unspecified, uncomplicated; R07.9 Chest pain, unspecified; Z59.9 Problem related to housing and economic circumstances, unspecified; Z91.038 Other insect allergy status; Z71.6 Tobacco abuse counseling; Z82.49 Family history of ischemic heart disease and other diseases of the circulatory system
CPT/HCPCS: 36415; 71045; 80048; 82550; 82553; 82962; 83036; 83735; 84484; 85025; 93005; 93010; 94640; 94660; 94799; 96374; 99291; 99292; J0171; J0330; J1200; J1644; J1815; J2405; J2920; J2930; J3480; J3490; J7512; J7620; S0028; S0164

== ENCOUNTER 2018-10-16 00:21 | Emergency (ER) | payer SELFPAY ==
[2018-10-16 00:33] VITALS: BP 131/69
[2018-10-16] MEDS ORDERED: ASPIRIN 81 MG TABLET, CHEWABLE PO ONE (00:34)
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
[2018-10-16] MEDS ORDERED: ONDANSETRON HCL INJ/PF 4 MG/2 ML SDV IV ONE (00:59)
[2018-10-16] MEDS ORDERED: MORPHINE SULFATE 10 MG/ML INJ IV ONE (00:59)
[2018-10-16 01:02] LABS: HEMATOCRIT 44.7 % (37.9-51.0); HEMOGLOBIN 15.9 g/dL (13.5-17.0); MEAN CORPUSCULAR HEMOGLOBIN 31.9 pg (27.0-33.4); MEAN CORPUSCULAR HGB CONC 35.5 g/dL (32.0-36.0); MEAN CORPUSCULAR VOLUME 90 fl (80-97); PLATELET COUNT 320 10^3/uL (150-450); RED BLOOD COUNT 4.98 10^6/uL (4.35-5.55); RED CELL DISTRIBUTION WIDTH 12.8 % (11.5-14.0); WHITE BLOOD COUNT 15.9 10^3/uL (4.0-10.5)
[2018-10-16 01:19] LABS: ALANINE AMINOTRANSFERASE 61 U/L (21-72); ALBUMIN 3.9 g/dL (3.5-5.0); ALKALINE PHOSPHATASE 128 U/L (38-126); ANION GAP 8 (5-19); ASPARTATE AMINO TRANSFERASE 24 U/L (17-59); BILIRUBIN,DIRECT 0.3 mg/dL (0.0-0.4); BILIRUBIN,TOTAL 0.4 mg/dL (0.2-1.3); BLOOD UREA NITROGEN 12 mg/dL (7-20); CALCIUM 9.8 mg/dL (8.4-10.2); CARBON DIOXIDE 22 mmol/L (22-30); CHLORIDE 106 mmol/L (98-107); CREATINE KINASE 64 U/L (55-170); GLUCOSE 151 mg/dL (75-110); POTASSIUM 4.3 mmol/L (3.6-5.0); TOTAL PROTEIN 6.8 g/dL (6.3-8.2)
--- NOTE | 2018-10-16 01:21 | RADIOLOGY REPORT (SQ) ---
EXAM DESCRIPTION: XR CHEST 1 VIEW COMPLETED DATE/TME: 10/16/2018 00:34 CLINICAL HISTORY: 33 years, Male, chest pain; nausea; SOB COMPARISON: 10/08/2018 chest NUMBER OF VIEWS: 1 TECHNIQUE: Portable chest LIMITATIONS: None. FINDINGS: Heart size normal. Lungs clear. No pneumothorax IMPRESSION: Negative chest copyright 2010 [employer]- All Rights Reserved
[2018-10-16 01:31] LABS: ABSOLUTE LYMPHOCYTES# (MANUAL) 2.1 10^3/uL (0.5-4.7); ABSOLUTE MONOCYTES # (MANUAL) 0.8 10^3/uL (0.1-1.4); ABSOLUTE NEUTROPHILS# (MANUAL) 12.4 10^3/uL (1.7-8.2); BAND NEUTROPHILS % (MANUAL) 1 % (3-5); BASOPHILS % (MANUAL) 0 % (0-2); EOSINOPHILS % (MANUAL) 4 % (0-6); LYMPHOCYTES % (MANUAL) 13 % (13-45); METAMYELOCYTES % (MANUAL) 1 % (0); MONOCYTES % (MANUAL) 5 % (3-13); SEGMENTED NEUTROPHILS % (MAN) 74 % (42-78); TOTAL CELLS COUNTED 100
[2018-10-16 01:36] LABS: HYPERSEGMENTED NEUTROPHILS PRESENT; PLATELET COMMENT ADEQUATE; TOXIC GRANULATION SLIGHT; TOXIC VACUOLATION PRESENT
[2018-10-16 01:41] LABS: TEAR DROP CELLS SLIGHT
[2018-10-16 01:42] LABS: CREATINE KINASE MB 1.22 ng/mL (<4.55)
[2018-10-16 01:43] LABS: MYELOCYTES % (MANUAL) 2 % (0)
[2018-10-16 01:48] LABS: TROPONIN I < 0.012 ng/mL
--- NOTE | 2018-10-16 02:35 | RADIOLOGY REPORT (SQ) ---
EXAM DESCRIPTION: CT CHEST ANGIOGRAPHY WITHOUT THEN WITH IV CONTRAST COMPLETED DATE/TME: 10/16/2018 00:57 CLINICAL HISTORY: 33 years, Male, pleuritic chest pain, recent hospitalization COMPARISON: None. TECHNIQUE: [id number] Images stored on PACS. All CT scanners at this facility use dose modulation, iterative reconstruction, and/or weight based dosing when appropriate to reduce radiation dose to as low as reasonably achievable (ALARA). Axial images with coronal and sagittal MIPS reconstructions [facility]: Dose Right [facility]: CareDose [facility]: Dose Right [facility]: Teradose 4D [facility]: [employer] LIMITATIONS: None. FINDINGS: Nearly nondiagnostic exam due to very minimal contrast within the pulmonary arterial tree. No evidence for large or central pulmonary embolus. Negative for thoracic aortic aneurysm or dissection. Heart and pericardium are unremarkable. Limited evaluation of the upper abdomen is unremarkable. Osseous structures are grossly intact. No pneumothorax. Airspace opacity in the lateral left upper lobe consistent with pneumonia. There are 2 groundglass nodules of the right upper lobe anteriorly each measuring approximately 3 to 4 mm in size. Please refer to below for follow-up. There is also a subpleural 3 mm groundglass nodule in the lateral left upper lobe. No effusion IMPRESSION: Nearly nondiagnostic exam however there is no large or central pulmonary embolus. Patchy airspace opacity lateral left upper lobe consistent with pneumonia. Groundglass nodules bilaterally, likely postinflammatory. Follow-up as below. 2017 Fleischner Society Recommendations for Multiple Solid Lung Nodules Follow-Up base on size (average of long- and short-axis diameters). Use most suspicious nodule for followup. Nodule Size <6 mm Low-Risk Patient: No routine follow-up Nodule Size <6 mm High-Risk Patient: Optional CT at 12 months Nodule Size 6-8 mm Low-Risk Patient: CT at 3-[address] at 18-24 months Nodule Size 6-8 mm High-Risk Patient: CT at 3-6 months then at 18-24 months Nodule Size (mm) >8 Low-Risk Patient: CT at 3-6 months, then consider CT at 18-24 months Nodule Size (mm) >8 High-Risk Patient: CT at 3-6 months, then at 18-24 months TECHNICAL DOCUMENTATION: Quality ID # [id number]: Final reports with documentation of one or more dose reduction techniques (e.g., Automated exposure control, adjustment of the mA and/or kV according to patient size, use of iterative reconstruction technique) copyright 2010 [employer]- All Rights Reserved
[2018-10-16] MEDS ORDERED: CEFTRIAXONE 1 GM/D5W RTU 1 GM/50 ML RTUPB IV ONE (02:50)
--- NOTE | 2018-10-16 20:56 | EKG REPORT ---
SEVERITY:- OTHERWISE NORMAL ECG - SINUS TACHYCARDIA : Confirmed by: Linda Sexton MD 16-Oct-2018 20:55:02
[2018-10-17 13:36] LABS: PATH REVIEW PATHOLOGIST REVIEWED
== END 2018-10-16 04:10 | disposition home or self-care (01) ==
LOC: ER 00:21
DX: J18.1 Lobar pneumonia, unspecified organism (principal); D72.829 Elevated white blood cell count, unspecified; R07.81 Pleurodynia; R07.9 Chest pain, unspecified; F17.210 Nicotine dependence, cigarettes, uncomplicated; E78.00 Pure hypercholesterolemia, unspecified; I10 Essential (primary) hypertension
CPT/HCPCS: 93005; 99284; 96374; 96375; 36415; 82553; 82550; 85025; 80053; 84484; 85379; 71045; 71275; 93010; J2270; J2405; J0696

== ENCOUNTER 2019-04-16 02:26 | Emergency (ER) | payer SELFPAY ==
[2019-04-16] MEDS ORDERED: IBUPROFEN 800 MG TABLET PO ONE (02:51)
[2019-04-16] MEDS ORDERED: BENZONATATE 100 MG CAPSULE PO ONE (02:54)
--- NOTE | 2019-04-16 02:54 | ER Document Report ---
HPI - HPI Patient complains to provider of: Cough and congestion Time Seen by Provider: 04/16/19 02:51 Pain Level: 5 Context: Patient is a 33-year-old male presents to the emergency department for generalized cough and congestion that started this morning. Patient also complaining of a sore throat. Patient's denying any fevers but does state that afternoon he had the chills. States is been using vyrt-zov-uecytrg cough drops as well as NyQuil. States this evening he had a "coughing fit" which he noticed some blood-tinged mucus which is why presents to the emergency department. Patient voices generalized bilateral mid axillary lower rib pain only upon coughing or deep inspiration. Denies any respiratory distress at this time. Patient denies any rash. Denies any headache. Past medical history: GERD, takes omeprazole on a daily basis, has no allergies. - REPRODUCTIVE Reproductive: DENIES: : Past Medical History - General Information source: Patient - Social History Smoking Status: Current Every Day Smoker Family History: CAD, Hypertension Patient has suicidal ideation: No Patient has homicidal ideation: No - Past Medical History Cardiac Medical History: Reports: Hx Hypercholesterolemia, Hx Hypertension Neurological Medical History: Denies: Hx Migraine, Hx Seizures Endocrine Medical History: Denies: Hx Diabetes Mellitus Type 1, Hx Diabetes Mellitus Type 2, Hx Hyperthyroidism, Hx Hypothyroidism Renal/ Medical History: Denies: Hx Peritoneal Dialysis GI Medical History: Reports: Hx Gastroesophageal Reflux Disease Musculoskeletal Medical History: Denies Hx Fibromyalgia, Denies Hx Gout Vertical Provider Document - CONSTITUTIONAL Agree With Documented VS: Yes Notes: GENERAL: Alert, interacts well. No acute distress. HEAD: Normocephalic, atraumatic. EYES: Pupils equal, round, and reactive to light. Extraocular movements intact. ENT: Oral mucosa moist, tongue midline. Nares patent, swollen turbinates noted bilaterally, TM's intact, nonerythematous, nonbulging bilaterally. Pharynx minorly erythematous, no palatal petechiae noted. NECK: Full range of motion. Supple. Trachea midline. No lymphadenopathy appreciated LUNGS: Clear to auscultation bilaterally, no wheezes, rales, or rhonchi. No respiratory distress. HEART: Regular rate and rhythm. No murmur ABDOMEN: Obese soft, non-tender. Non-distended. Bowel sounds present in all 4 quadrants. EXTREMITIES: Moves all 4 extremities spontaneously. No edema, normal radial and dorsalis pedis pulses bilaterally. No cyanosis. BACK: no cervical, thoracic, lumbar midline tenderness. No saddle anesthesia, normal distal neurovascular exam. NEUROLOGICAL: Alert and oriented x3. Normal speech. cranial nerves II through XII grossly intact PSYCH: Normal affect, normal mood. SKIN: Warm, dry, normal turgor. No rashes or lesions noted. - INFECTION CONTROL TRAVEL OUTSIDE OF THE [place] IN LAST 30 DAYS: No Course - Re-evaluation Re-evalutation: 04/16/19 04:17 Laboratory 04/16/19 03:21 Group A Strep Rapid NEGATIVE Chest X-Ray 04/16/19 02:51 IMPRESSION: 1. No acute cardiopulmonary process. NUMBER OF VIEWS: TECHNIQUE: LIMITATIONS: None. FINDINGS: IMPRESSION: copyright 2010 [employer]- All Rights Reserved Upon reexamination patient is snoring soundly. Patient's girlfriend does voice patient has a history of sleep apnea. Patient is easily arousable to verbal st imuli. Discussed negative chest x-ray as well as negative strep in the emergency department. Discussed symptomatic use of kdys-wof-ucbdlpv cold medications and following up with her primary care provider. Patient voices he is uninsured, will provide [place] [facility] information. 04/16/19 04:18 Patient's heart rate was initially noted to be elevated upon arrival. It has returned within normal limits upon discharge. Heart rate 98 counted by myself at bedside. - Vital Signs Vital signs: Temp Pulse Resp BP Pulse Ox 98.7 F 122 H 20 152/92 H 93 04/16/19 02:28 04/16/19 02:28 04/16/19 02:28 04/16/19 02:28 04/16/19 02:28 Discharge - Discharge Clinical Impression: Upper respiratory infection Qualifiers: URI type: unspecified viral URI Qualified Code(s): J06.9 - Acute upper respiratory infection, unspecified Condition: Stable Disposition: HOME, SELF-CARE Instructions: Viral Syndrome ([facility]), Upper Respiratory Illness ([facility]) Additional Instructions: As we discussed you have been seen and treated in the emergency department for an upper respiratory infection. These are typically caused by viruses and do not respond to antibiotics. Please take nexp-btm-uwahssw cold medication as needed. Please stay well-hydrated. Please follow-up with [place] [facility], [facility] as needed. These are to clinics you can go to even though you are uninsured. Please return to the emergency department for any concerns. Prescriptions: Benzonatate [Tessalon Perles 100 mg Capsule] 100 mg PO Q8HP PRN #40 capsule PRN Reason: Mometasone Furoate [Nasonex] 1 spray NS Q12 #1 spray.pump Forms: Return to Work Referrals: [facility] [Provider Group] - Follow up as needed [facility] [Provider Group] - Follow up as needed
--- NOTE | 2019-04-16 03:27 | RADIOLOGY REPORT (SQ) ---
EXAM DESCRIPTION: XR CHEST 2 VIEWS COMPLETED DATE/TME: 04/16/2019 02:51 CLINICAL HISTORY: 33 years, Male, sob COMPARISON: EXAM: Two view chest. INDICATION: Chest pain. COMPARISON: Chest x-ray: 03/01/2018. FINDINGS: Cardiac silhouette: Unremarkable. Kiera: Unremarkable. Lobar consolidation: None. Pleural effusion: None. Pneumothorax: None. Other: None. Bones: Unremarkable. Other: None. IMPRESSION: 1. No acute cardiopulmonary process. NUMBER OF VIEWS: TECHNIQUE: LIMITATIONS: None. FINDINGS: IMPRESSION: copyright 2010 [employer]- All Rights Reserved
[2019-04-16 04:04] VITALS: BP 121/53
== END 2019-04-16 04:26 | disposition home or self-care (01) ==
LOC: ER 02:26
DX: J06.9 Acute upper respiratory infection, unspecified (principal); F17.200 Nicotine dependence, unspecified, uncomplicated; E78.00 Pure hypercholesterolemia, unspecified; I10 Essential (primary) hypertension
CPT/HCPCS: 71046; 87070; 87880

== ENCOUNTER 2019-09-07 17:57 | Emergency (ER) | payer SELFPAY ==
[2019-09-07] MEDS ORDERED: IPRATROPIUM/ALBUTEROL 0.5-2.5 MG/3 ML AMPUL NEB ONE (19:23)
--- NOTE | 2019-09-07 19:25 | ER Document Report ---
ED Medical Screen (RME) - General Chief Complaint: Cough Stated Complaint: COUGH,FEVER,CONGESTION,BACK PAIN Time Seen by Provider: 09/07/19 19:10 Mode of Arrival: Ambulatory Information source: Patient Notes: Otherwise healthy 34-year-old male presenting to the emergency department chief complaint of cough, congestion, fever and body aches. Patient reports symptoms ongoing for the last few days. Patient reports that his cough however has been persistent over the last 1 to 2 months. Faint expiratory wheezes noted bilaterally. Mildly increased work of breathing, dyspnea on exertion. Patient is morbidly obese. I have greeted and performed a rapid initial assessment of this patient. A comprehensive ED assessment and evaluation of the patient, analysis of test results and completion of the medical decision making process will be conducted by additional ED providers. I have specifically instructed the patient or family members with the patient to immediately return to any nursing staff should anything change in the patient's condition or with their chief complaint. TRAVEL OUTSIDE OF THE [place] IN LAST 30 DAYS: No - Related Data Allergies/Adverse Reactions: fire ant Allergy (Severe, Verified 10/16/18 00:31) Anaphylaxis Home Medications: omeprazol Past Medical History - Past Medical History Cardiac Medical History: Reports: Hx Hypercholesterolemia, Hx Hypertension Neurological Medical History: Denies: Hx Migraine, Hx Seizures Endocrine Medical History: Denies: Hx Diabetes Mellitus Type 1, Hx Diabetes Mellitus Type 2, Hx Hyperthyroidism, Hx Hypothyroidism Renal/ Medical History: Denies: Hx Peritoneal Dialysis GI Medical History: Reports: Hx Gastroesophageal Reflux Disease Musculoskeltal Medical History: Denies Hx Fibromyalgia, Denies Hx Gout Physical Exam - Vital signs Vitals: Temp Pulse Resp BP Pulse Ox 99.4 F 119 H 28 H 140/84 H 96 09/07/19 18:18 09/07/19 18:18 09/07/19 18:18 09/07/19 18:18 09/07/19 18:18 Course - Vital Signs Vital signs: Temp Pulse Resp BP Pulse Ox 99.4 F 119 H 28 H 140/84 H 96 09/07/19 18:18 09/07/19 18:18 09/07/19 18:18 09/07/19 18:18 09/07/19 18:18
--- NOTE | 2019-09-07 20:18 | RADIOLOGY REPORT (SQ) ---
EXAM DESCRIPTION: XR CHEST 2 VIEWS COMPLETED DATE/TME: 09/07/2019 19:23 CLINICAL HISTORY: 34 years, Male, cough/fever COMPARISON: None. NUMBER OF VIEWS: 2 TECHNIQUE: LIMITATIONS: None. FINDINGS: Cardiomediastinal silhouette is prominent. Chronic parenchymal lung change. No consolidation or edema. No effusion or pneumothorax. Deformity of the left clavicle, perhaps old injury. IMPRESSION: Chronic change. No acute intrathoracic process is appreciated copyright 2010 [employer]- All Rights Reserved
[2019-09-07 20:21] LABS: A TYPE INFLUENZA AG NEGATIVE (NEGATIVE); B INFLUENZA AG NEGATIVE (NEGATIVE)
--- NOTE | 2019-09-07 22:21 | ER Document Report ---
ED General - General Chief Complaint: Cough Stated Complaint: COUGH,FEVER,CONGESTION,BACK PAIN Time Seen by Provider: 09/07/19 19:10 Mode of Arrival: Ambulatory Notes: 34-year-old male presents emergency department complaining of a cough with posttussive emesis going on for the past few days associated with sweats and chills, has not checked his temperature. Denies any nausea, states the vomiting only happens after coughing. Does admit one episode of diarrhea last night. Patient also states that after a long episode of coughing he will get dizzy with the cough and have some tingling in his fingers. Patient also complains of chest pain with cough, denies any chest pain at rest. Has tried bzrh-xlv-dgztpsx Mucinex and occasionally tried Vicks but not regularly. Denies any relief. Complains of nasal congestion, denies rhinorrhea. Patient also notes that he has pain in his left testicle when he coughs. Denies any pain with ejaculation, urination or manipulation. Denies any swelling but states he cannot see his testicles. TRAVEL OUTSIDE OF THE [place] IN LAST 30 DAYS: No - Related Data Allergies/Adverse Reactions: fire ant Allergy (Severe, Verified 10/16/18 00:31) Anaphylaxis Home Medications: omeprazol Past Medical History - General Information source: Patient - Social History Smoking Status: Current Every Day Smoker Family History: CAD, Hypertension Patient has suicidal ideation: No Patient has homicidal ideation: No - Past Medical History Cardiac Medical History: Reports: Hx Hypercholesterolemia, Hx Hypertension Pulmonary Medical History: Reports: Hx Pneumonia Neurological Medical History: Denies: Hx Migraine, Hx Seizures Endocrine Medical History: Denies: Hx Diabetes Mellitus Type 1, Hx Diabetes Mellitus Type 2, Hx Hyperthyroidism, Hx Hypothyroidism Renal/ Medical History: Denies: Hx Peritoneal Dialysis GI Medical History: Reports: Hx Gastroesophageal Reflux Disease Musculoskeletal Medical History: Denies Hx Fibromyalgia, Denies Hx Gout Review of Systems - Review of Systems Constitutional: See HPI, Chills, Diaphoresis, Malaise EENT: See HPI, Nose congestion, Nose discharge Cardiovascular: See HPI, Chest pain - Only with cough, Dizziness - With cough Respiratory: See HPI, Cough, Hurts to breathe, Sputum Gastrointestinal: See HPI, Diarrhea Male Genitourinary: See HPI, Testicular pain Neurological/Psychological: See HPI -: Yes All other systems reviewed and negative Physical Exam - Vital signs Vitals: Temp Pulse Resp BP Pulse Ox 99.4 F 119 H 28 H 140/84 H 96 09/07/19 18:18 09/07/19 18:18 09/07/19 18:18 09/07/19 18:18 09/07/19 18:18 Interpretation: Tachycardic, Tachypneic - Notes Notes: GENERAL: Alert, interacts well. No acute distress. HEAD: Normocephalic, atraumatic EYES: Pupils equal, round and reactive to light, extraocular movements intact. ENT: Oral mucosa moist, tongue midline. Clear rhinorrhea, clear fluid behind the tympanic membranes, injected tympanic membranes, normal light reflex. Co bblestoning in the posterior oropharynx. NECK: Full range of motion, supple, trachea midline. LUNGS: Clear to auscultation bilaterally, trace wheezes, no rales or rhonchi, no respiratory distress. HEART: Mild tachycardia, no murmurs, gallops, rubs. ABDOMEN: Soft, nontender, nondistended, bowel sounds present in all 4 quadrants. EXTREMITIES: Moves all 4 extremities spontaneously, no edema, radial and dorsalis pedis pulses 2/4 bilaterally. No cyanosis. NEUROLOGICAL: Alert and oriented x3, normal speech. : No testicular tenderness to palpation, no swelling or masses, left indirect inguinal hernia, very small. PSYCH: Normal mood, normal affect. SKIN: Warm, Dry, normal turgor, no rashes or lesions noted. Course - Re-evaluation Re-evalutation: 09/07/19 22:26 Flu swabs negative. Chest X-Ray 09/07/19 19:23 IMPRESSION: Chronic change. No acute intrathoracic process is appreciated copyright 2010 [employer]- All Rights Reserved Consistent with viral bronchitis, no indication for antibiotics, treat with steroids for the wheezing as the breathing treatments did not make him feel any better. Use cough suppressants in the form of Tessalon Perles and guaifenesin with Phenergan or dextromethorphan with Phenergan, patient did mention that he has a history of sleep apnea, would like to be referred to somebody who can help him with this. Patient will be given the name of Dr. Leon. Discharged home. - Vital Signs Vital signs: Temp Pulse Resp BP Pulse Ox 100.1 F 117 H 18 111/54 L 94 09/07/19 21:45 09/07/19 21:45 09/07/19 21:45 09/07/19 21:45 09/07/19 21:45 Discharge - Discharge Clinical Impression: Acute viral bronchitis, Morbid obesity with BMI of 40.0-44.9, adult Condition: Stable Disposition: HOME, SELF-CARE Additional Instructions: Bronchitis with Bronchospasm (Wheezing) You have bronchitis with bronchospasm (wheezing). Sometimes people develop wheezing with a chest cold. This occurs either because of an underlying tendency toward asthma or because the virus itself irritates the bronchial tubes. This irritation causes cough, shortness of breath, and wheezing. We did not give you any inhaler because you did not have any relief with that here, we did prescribe steroids. Until you recover, avoid chemical fumes, dusts, pollens, and exercising in very cold or dry air. If you smoke, stop now! Most cases of bronchitis get better without antibiotics. There is no sign of bacterial infection at this time. Increase your fluid intake. A cool mist humidifier may make your lungs more comfortable. An expectorant (cough medicine that loosens phlegm) can help. Repeated episodes of bronchitis and bronchospasm may result in lung damage -- for example, chronic bronchitis, recurrent pneumonias, or emphysema. If you develop a fever, increased wheezing, chest pain, or severe shortness of breath, you should contact the doctor immediately. Please use nasal saline rinses such as a NetiPot or [employer]Med Sinus Rinses. Please use nasal steroid such as Nasonex 1 squirt per nostril twice a day to decrease inflammation and swelling. Please also use dwsf-pxy-xrcyray decongestants according to their directions on the box such as Sudafed during the day and Benadryl at night. You may use the Tessalon Perles 1 Perle every 8 hours as needed to decrease your cough. You may also use Prescriptions: Promethazine/Dextromethorphan [Promethazine-Dm Syrup] 5 ml PO Q6HP PRN #120 syrup PRN Reason: Benzonatate [Tessalon Perles 100 mg Capsule] 100 mg PO Q8HP PRN #40 capsule PRN Reason: Prednisone [Deltasone 20 mg Tablet] 2 tab PO DAILY #10 tablet Forms: Return to Work Referrals: ROBERT LEON MD [ACTIVE STAFF] - Follow up as needed (You may call him to arrange an appointment to discuss treating your sleep apnea.)
[2019-09-07] MEDS ORDERED: BENZONATATE 100 MG CAPSULE PO ONE (22:24)
[2019-09-07 22:48] VITALS: BP 117/59
== END 2019-09-07 22:48 | disposition home or self-care (01) ==
LOC: ER 17:57
DX: J20.8 Acute bronchitis due to other specified organisms (principal); E66.01 Morbid (severe) obesity due to excess calories; Z68.41 Body mass index [BMI] 40.0-44.9, adult; R05 Cough; R11.10 Vomiting, unspecified; N50.812 Left testicular pain; R61 Generalized hyperhidrosis; R68.83 Chills (without fever); R19.7 Diarrhea, unspecified; R07.1 Chest pain on breathing; R53.81 Other malaise; R00.0 Tachycardia, unspecified; R06.2 Wheezing; R42 Dizziness and giddiness; R20.2 Paresthesia of skin; R09.81 Nasal congestion; I10 Essential (primary) hypertension; F17.200 Nicotine dependence, unspecified, uncomplicated; K21.9 Gastro-esophageal reflux disease without esophagitis; Z79.899 Other long term (current) drug therapy; Z87.892 Personal history of anaphylaxis; Z91.038 Other insect allergy status
CPT/HCPCS: 94640; 99283; 87804; 71046; J7620

== ENCOUNTER 2019-12-21 20:44 | Emergency (ER) | payer SELFPAY ==
--- NOTE | 2019-12-21 21:35 | ER Document Report ---
ED Medical Screen (RME) - General Stated Complaint: CHEST PAIN Notes: Patient is a 34-year-old white male with past medical history of obesity and prior episodes of chest pain who presents to the emergency department with a chief complaint of chest pain that began earlier while walking in a store. EMS was called the location, given aspirin and nitro which he states helped the pain some. He states the pain is in the left anterior chest wall. Does not radiate. States he has had stress test in the past which was normal. He denies any drugs or alcohol. Patient has his father had a heart attack in his 30s. EKG noted on intake slight changes from prior questionable J-point elevation versus ST elevation. Triage nurse alerted who will initiate process for charge nurse to immediately move the patient to the back for assessment by ED physician placement on a property assessment monitor. I have treated and performed a rapid initial assessment of this patient. A comprehensive ED assessment and evaluation of the patient, analysis of test results and completion of medical decision making process will be conducted by additional ED providers. PHYSICAL EXAMINATION: GENERAL: Well-appearing, well-nourished and in no acute distress. A&Ox4. Answers questions appropriately. Nondiaphoretic. TRAVEL OUTSIDE OF THE [place] IN LAST 30 DAYS: No - Related Data Allergies/Adverse Reactions: fire ant Allergy (Severe, Verified 10/16/18 00:31) Anaphylaxis Past Medical History - Past Medical History Cardiac Medical History: Reports: Hx Hypercholesterolemia, Hx Hypertension Pulmonary Medical History: Reports: Hx Pneumonia Neurological Medical History: Denies: Hx Migraine, Hx Seizures Endocrine Medical History: Denies: Hx Diabetes Mellitus Type 1, Hx Diabetes Mellitus Type 2, Hx Hyperthyroidism, Hx Hypothyroidism Renal/ Medical History: Denies: Hx Peritoneal Dialysis GI Medical History: Reports: Hx Gastroesophageal Reflux Disease Musculoskeltal Medical History: Denies Hx Fibromyalgia, Denies Hx Gout Physical Exam - Vital signs Vitals: Temp Pulse Resp BP Pulse Ox 98.7 F 95 20 144/76 H 96 12/21/19 21:12/21/19 21:12/21/19 21:12/21/19 21:12/21/19 21:09 Course - Vital Signs Vital signs: Temp Pulse Resp BP Pulse Ox 98.7 F 95 20 144/76 H 96 12/21/19 21:12/21/19 21:12/21/19 21:09 12/21/19 21:09 12/21/19 21:09
[2019-12-21] MEDS ORDERED: MORPHINE SULFATE 10 MG/ML INJ IV ONE (21:55)
[2019-12-21] MEDS ORDERED: DIAZEPAM INJ 10 MG/2 ML DISP.SYRIN IV ONE (21:56)
--- NOTE | 2019-12-21 22:03 | RADIOLOGY REPORT (SQ) ---
EXAM DESCRIPTION: XR CHEST 1 VIEW COMPLETED DATE/TME: 12/21/2019 21:32 CLINICAL HISTORY: 34 years, Male, cp COMPARISON: 10/16/2018 chest NUMBER OF VIEWS: 1 TECHNIQUE: Portable chest LIMITATIONS: None. FINDINGS: The heart size is normal. Lungs are clear. No pneumothorax IMPRESSION: No acute cardiopulmonary process copyright 2010 [employer]- All Rights Reserved
[2019-12-21 22:15] LABS: ABSOLUTE BASOPHILS # (AUTO) 0.1 10^3/uL (0.0-0.2); ABSOLUTE EOSINOPHILS # (AUTO) 0.3 10^3/uL (0.0-0.6); ABSOLUTE LYMPHOCYTES (AUTO) 3.1 10^3/uL (0.5-4.7); ABSOLUTE MONOCYTES (AUTO) 0.6 10^3/uL (0.1-1.4); ABSOLUTE NEUT (AUTO) 4.2 10^3/uL (1.7-8.2); EOSINOPHILS % (AUTO) 4.1 % (0-6); HEMATOCRIT 42.5 % (37.9-51.0); HEMOGLOBIN 14.9 g/dL (13.5-17.0); LYMPHOCYTES % (AUTO) 36.9 % (13-45); MEAN CORPUSCULAR HEMOGLOBIN 31.4 pg (27.0-33.4); MEAN CORPUSCULAR VOLUME 90 fl (80-97); MONOCYTES % (AUTO) 7.6 % (3-13); PLATELET COUNT 272 10^3/uL (150-450); RED BLOOD COUNT 4.74 10^6/uL (4.35-5.55); RED CELL DISTRIBUTION WIDTH 12.4 % (11.5-14.0); SEGMENTED NEUTROPHILS % (AUTO) 50.4 % (42-78); TOTAL CELLS COUNTED % (AUTO) 100 %; WHITE BLOOD COUNT 8.3 10^3/uL (4.0-10.5)
[2019-12-21 22:31] LABS: ALBUMIN 4.2 g/dL (3.5-5.0); ALKALINE PHOSPHATASE 114 U/L (38-126); ANION GAP 6 (5-19); ASPARTATE AMINO TRANSFERASE 28 U/L (17-59); BILIRUBIN,TOTAL 0.3 mg/dL (0.2-1.3); BLOOD UREA NITROGEN 14 mg/dL (7-20); CALCIUM 9.3 mg/dL (8.4-10.2); CARBON DIOXIDE 25 mmol/L (22-30); CHLORIDE 103 mmol/L (98-107); CREATINE KINASE 140 U/L (55-170); GLUCOSE 252 mg/dL (75-110); POTASSIUM 4.4 mmol/L (3.6-5.0)
--- NOTE | 2019-12-21 22:31 | ER Document Report ---
Entered by ARLYN DEUTSCH SCRIBE 12/21/19 [id number] Acting as scribe for:GIOVANNA CHAN IV, MD ED Cardiac - General Chief Complaint: Chest Pain Stated Complaint: CHEST PAIN Mode of Arrival: Medic Information source: Patient, Emergency Med Personnel Notes: This 34 year old male patient with a history of HTN and tobacco use brought in by EMS presents to the ED today with complaints of intermittent left-sided chest pain that started just prior to arrival while waking in [facility]. Patient descri bes the pain as sharp, shooting, and 3/5 in severity without any radiation. He reports prior episodes of chest pain, but states that this feels different. He also reports that he was told that he had "fluid" around his heart x2 years ago, but has not had any further follow up. Patient notes mild relief after administration of 325 mg Aspirin and 0.4 mg Nitroglycerin x4 provided by EMS. He also notes shortness of breath. Patient's father had a NE in his 30s. TRAVEL OUTSIDE OF THE [place] IN LAST 30 DAYS: No - Related Data Allergies/Adverse Reactions: fire ant Allergy (Severe, Verified 10/16/18 00:31) Anaphylaxis Past Medical History - Social History Smoking Status: Current Every Day Smoker Cigarette use (# per day): Yes Chew tobacco use (# tins/day): No Smoking Education Provided: No Frequency of alcohol use: Occasional Drug Abuse: None Family History: Reviewed & Not Pertinent, CAD - Father had a NE in his 30s, Hypertension Patient has suicidal ideation: No Patient has homicidal ideation: No - Past Medical History Cardiac Medical History: Reports: Hx Hypercholesterolemia, Hx Hypertension Pulmonary Medical History: Reports: Hx Pneumonia GI Medical History: Reports: Hx Gastroesophageal Reflux Disease Review of Systems - Review of Systems Constitutional: No symptoms reported EENT: No symptoms reported Cardiovascular: See HPI, Chest pain Respiratory: See HPI, Short of breath Gastrointestinal: No symptoms reported Genitourinary: No symptoms reported Male Genitourinary: No symptoms reported Musculoskeletal: No symptoms reported Skin: No symptoms reported Hematologic/Lymphatic: No symptoms reported Neurological/Psychological: No symptoms reported -: Yes All other systems reviewed and negative Physical Exam - Vital signs Vitals: Temp Pulse Resp BP Pulse Ox 98.7 F 95 20 144/76 H 96 12/21/19 21:09 12/21/19 21:09 12/21/19 21:09 12/21/19 21:09 12/21/19 21:09 - General General appearance: Alert In distress: None - HEENT Head: Normocephalic, Atraumatic Eyes: Normal Pupils: PERRL - Respiratory Respiratory status: No respiratory distress Chest status: Nontender Breath sounds: Normal Chest palpation: Normal - Cardiovascular Rhythm: Regular Heart sounds: Normal auscultation Murmur: No Friction rub: No Gallop: None auscultated - Abdominal Inspection: Obese Distension: No distension Bowel sounds: Normal Tenderness: Nontender - Abdomen soft Organomegaly: No organomegaly - Back Back: Normal, Nontender - Extremities General upper extremity: Normal inspection General lower extremity: Normal inspection - Neurological Neuro grossly intact: Yes Orientation: AAOx4 Tyra Coma Scale Eye Opening: Spontaneous [place] Coma Scale Verbal: Oriented [place] Coma Scale Motor: Obeys Commands [place] Coma Scale Total: 15 - Psychological Associated symptoms: Normal affect, Normal mood - Skin Skin Temperature: Warm Skin Moisture: Dry Skin Color: Normal Course - Re-evaluation Re-evalutation: 12/22/19 02:41 Results of ED MSE discussed with patient. All questions were answered prior to discharge. Emergency signs and symptoms, reasons to return to the emergency department discussed with patient. - Vital Signs Vital signs: Temp Pulse Resp BP Pulse Ox 98.7 F 95 19 165/71 H 97 12/21/19 21:29 12/21/19 21:09 12/22/19 01:31 12/22/19 02:01 12/22/19 01:31 - Laboratory Result Diagrams: 12/21/19 21:44 12/21/19 21:44 Laboratory results interpreted by me: 12/21/19 21:44 Sodium 133.7 L Glucose 252 H - Diagnostic Test Radiology reviewed: Reports reviewed - EKG Interpretation by Me Additional EKG results interpreted by me: 12/22/19 02:46 EKG obtained on 12/21/2019 at 2112 hrs. was interpreted by this MD. Findings: Normal sinus rhythm, rate 92, normal axis, P waves proceed QRS complex, QRS c omplex appears narrow, there are no obvious patterns of ST segment elevation or depression present to suggest acute myocardial ischemia or infarction. Impression: Normal sinus rhythm with nonspecific ST segments. Discharge - Discharge Clinical Impression: Chest wall pain Condition: Stable Disposition: HOME, SELF-CARE Instructions: Chest Wall Pain ([facility]) Additional Instructions: Return to the Emergency Department without delay if any worse. HOME CARE INSTRUCTIONS & INFORMATION: Thank you for choosing us for your medical needs. We hope you're satisfied with the care you received. After you leave, you must properly care for your problem and, at the same time, observe its progress. Any condition can change. Some illnesses can change rapidly over hours or days. If your condition worsens, return to the Emergency Department or see your physician promptly. ABOUT YOUR X-RAYS AND EKG'S: If you had an EKG or X-rays taken, they have been read by the Emergency Physician. The X-rays and EKG's will also be read by a R adiologist or Central Office Operator within 24 hours. If discrepancies are noted, you will be notified by telephone. Please be certain the ED has a correct telephone number & address where you can be reached. Also, realize that some fractures or abnormalities do not show up on initial X-rays. If your symptoms continue, see your physician. ABOUT YOUR LABORATORY TEST: If you had laboratory tests, the results have been reviewed by the Emergency Physician. Some test results (for example cultures) may not be available for several days. You will be contacted if any test result shows you need additional treatment. Please be certain the ED has a correct telephone number and address where you can be reached. ABOUT YOUR MEDICATIONS: You will receive instructions on how to take your medicine on the prescription label you receive. Additional information may be provided by the Pharmacy. If you have questions afterwards, call the ED for clarification or further instructions. Some prescribed medications may cause drowsiness. Do not perform tasks such as driving a car or operating machinery without consulting your Pharmacist. If you feel you need a refill of pain medication, your condition will need re-evaluation. Please do not call for a refill of any medication. ABOUT YOUR SIGNATURE: Signature of this document acknowledges to followin. Understanding that you received emergency treatment and that you may be released before al medical problems are known or treated. Please be certain the ED has a correct phone number & address where you can be reached. 2. Acknowledgement that you will arrange for follow-up care as recommended. 3. Authorization for the Emergency Physician to provide information to your follow-up Physician in order to maximize your care. AT ANY TIME, IF YOUR SYMPTOMS CHANGE SIGNIFICANTLY OR WORSEN OR YOU DEVELOP NEW SYMPTOMS, RETURN TO THE EMERGENCY DEPARTMENT IMMEDIATELY FOR RE-EVALUATION. OUR GOAL IS TO PROVIDE EXCELLENT MEDICAL CARE! WE HOPE THAT WE HAVE MET YOUR EXPECTATIONS DURING YOUR EMERGENCY DEPARTMENT VISIT AND THAT YOU FEEL YOU HAVE RECEIVED EXCELLENT CARE! Prescriptions: Ibuprofen [Ibu] 800 mg PO TIDP PRN #15 tablet PRN Reason: pain Methocarbamol [Robaxin 750 mg Tablet] 1,500 mg PO QIDP PRN #24 tablet PRN Reason: muscle spasm Referrals: LUCIUS SINGH MD [HONORARY] - Follow up as needed I personally performed the services described in the documentation, reviewed and edited the documentation which was dictated to the scribe in my presence, and it accurately records my words and actions.
[2019-12-21 22:32] LABS: INTERNATIONAL RATION (INR) 0.96; PROTHROMBIN TIME 12.8 SEC (11.4-15.4)
[2019-12-21 22:33] LABS: PARTIAL THROMBOPLASTIN TIME 29.3 SEC (23.5-35.8)
[2019-12-21] MEDS ORDERED: HYDROMORPHONE HCL INJ/PF 2 MG/ML AMPULE IV ONE (23:23)
[2019-12-22 03:20] VITALS: BP 141/83
--- NOTE | 2019-12-22 19:36 | EKG REPORT ---
SEVERITY:- NORMAL ECG - SINUS RHYTHM : Confirmed by: Emma Oropeza 22-Dec-2019 19:35:54
== END 2019-12-22 03:21 | disposition home or self-care (01) ==
LOC: ER 20:44
DX: R07.89 Other chest pain (principal); R06.02 Shortness of breath; I10 Essential (primary) hypertension; Z79.899 Other long term (current) drug therapy; I25.2 Old myocardial infarction; F17.210 Nicotine dependence, cigarettes, uncomplicated; E66.9 Obesity, unspecified
CPT/HCPCS: 93005; 99284; 96374; 96375; 36415; 82550; 85025; 85610; 85730; 80053; 84484; 71045; 93010; J3360; J2270

== ENCOUNTER 2020-02-10 21:17 | Emergency (ER) | payer SELFPAY ==
--- NOTE | 2020-02-10 21:31 | ER Document Report ---
ED Medical Screen (RME) - General Chief Complaint: High Blood Sugar Stated Complaint: POSS ABCESS Time Seen by Provider: 02/10/20 21:22 Mode of Arrival: Ambulatory Information source: Patient Notes: 34-year-old male presented to ED for complaint of painful cyst and elevated blood sugar. He states he has been tired fatigue body aches all over with frequent urination. He does have a pilonidal cyst that has ruptured on its own. He will need antibiotics for the pilonidal cyst. He has never had a pilonidal cyst before now. Patient is alert oriented respirations regular nonlabored speaking in full sentences. His Accu-Chek is 297 at this time. I have greeted and performed a rapid initial assessment of this patient. A comprehensive ED assessment and evaluation of the patient, analysis of test results and completion of medical decision making process will be conducted by an additional ED providers. TRAVEL OUTSIDE OF THE [place] IN LAST 30 DAYS: No - Related Data Allergies/Adverse Reactions: fire ant Allergy (Severe, Verified 10/16/18 00:31) Anaphylaxis Past Medical History - Social History Chew tobacco use (# tins/day): No Frequency of alcohol use: Social Drug Abuse: None - Past Medical History Cardiac Medical History: Reports: Hx Hypercholesterolemia, Hx Hypertension Pulmonary Medical History: Reports: Hx Pneumonia Neurological Medical History: Denies: Hx Migraine, Hx Seizures Endocrine Medical History: Denies: Hx Diabetes Mellitus Type 1, Hx Diabetes Mellitus Type 2, Hx Hyperthyroidism, Hx Hypothyroidism Renal/ Medical History: Denies: Hx Peritoneal Dialysis GI Medical History: Reports: Hx Gastroesophageal Reflux Disease Musculoskeltal Medical History: Denies Hx Fibromyalgia, Denies Hx Gout Physical Exam - Vital signs Vitals: Temp 98.4 F 02/10/20 21:22 Course - Vital Signs Vital signs: Temp Pulse Resp BP Pulse Ox 98.4 F 98 18 153/80 H 99 02/10/20 21:27 02/10/20 21:27 02/10/20 21:27 02/10/20 21:27 02/10/20 21:27
[2020-02-10] MEDS ORDERED: NORMAL SALINE 1000 ML 1,000 ML IV ONE (21:36)
[2020-02-10 23:04] LABS: VENOUS BLOOD BASE EXCESS -2.1 mmol/L; VENOUS BLOOD HCO3 23.5 mmol/L (20-32); VENOUS BLOOD PCO2 43.2 mmHg (35-63); VENOUS BLOOD PH 7.35 (7.30-7.42)
[2020-02-10 23:07] LABS: ABSOLUTE BASOPHILS # (AUTO) 0.1 10^3/uL (0.0-0.2); ABSOLUTE EOSINOPHILS # (AUTO) 0.3 10^3/uL (0.0-0.6); ABSOLUTE LYMPHOCYTES (AUTO) 2.7 10^3/uL (0.5-4.7); ABSOLUTE MONOCYTES (AUTO) 0.5 10^3/uL (0.1-1.4); ABSOLUTE NEUT (AUTO) 3.8 10^3/uL (1.7-8.2); BASOPHILS % (AUTO) 0.9 % (0-2); EOSINOPHILS % (AUTO) 4.7 % (0-6); HEMATOCRIT 43.8 % (37.9-51.0); HEMOGLOBIN 15.1 g/dL (13.5-17.0); LYMPHOCYTES % (AUTO) 36.6 % (13-45); MEAN CORPUSCULAR HEMOGLOBIN 31.2 pg (27.0-33.4); MEAN CORPUSCULAR HGB CONC 34.6 g/dL (32.0-36.0); MEAN CORPUSCULAR VOLUME 90 fl (80-97); MONOCYTES % (AUTO) 6.8 % (3-13); PLATELET COUNT 272 10^3/uL (150-450); RED BLOOD COUNT 4.85 10^6/uL (4.35-5.55); RED CELL DISTRIBUTION WIDTH 12.7 % (11.5-14.0); TOTAL CELLS COUNTED % (AUTO) 100 %; WHITE BLOOD COUNT 7.5 10^3/uL (4.0-10.5)
[2020-02-10 23:08] LABS: APPEARANCE,URINE CLEAR; BILIRUBIN,URINE NEGATIVE (NEGATIVE); COLOR,URINE STRAW; GLUCOSE, URINE >=500 mg/dL (NEGATIVE); KETONES,URINE NEGATIVE (NEGATIVE); LEUKOCYTE ESTERASE,URINE NEGATIVE (NEGATIVE); NITRITE,URINE NEGATIVE (NEGATIVE); PROTEIN,URINE NEGATIVE (NEGATIVE); UROBILINOGEN,URINE NEGATIVE mg/dL (<2.0)
[2020-02-10 23:39] LABS: ALBUMIN 4.1 g/dL (3.5-5.0); ALKALINE PHOSPHATASE 139 U/L (38-126); ANION GAP 10 (5-19); ASPARTATE AMINO TRANSFERASE 29 U/L (17-59); BILIRUBIN,TOTAL 0.3 mg/dL (0.2-1.3); BLOOD UREA NITROGEN 12 mg/dL (7-20); CALCIUM 9.2 mg/dL (8.4-10.2); CARBON DIOXIDE 24 mmol/L (22-30); CHLORIDE 104 mmol/L (98-107); GLUCOSE 336 mg/dL (75-110); POTASSIUM 4.5 mmol/L (3.6-5.0); TOTAL PROTEIN 6.8 g/dL (6.3-8.2)
[2020-02-10] MEDS ORDERED: RINGERS SOLUTION,LACTATED 1,000 ML IV ONE (23:47)
[2020-02-11] MEDS ORDERED: SULFAMETHOXAZOLE/TRIMETHOPRIM 800-160 MG TABLET PO ONE (00:02)
--- NOTE | 2020-02-11 00:02 | ER Document Report ---
ED General - General Chief Complaint: High Blood Sugar Stated Complaint: POSS ABCESS Time Seen by Provider: 02/10/20 21:22 Mode of Arrival: Ambulatory TRAVEL OUTSIDE OF THE [place] IN LAST 30 DAYS: No - HPI Notes: 34-year-old male presents with concerns for a cyst in his buttock area. He reports that at the top of his butt crack and there is a hole. Previously was swollen, then started to drain a purulent material. states that now a hole is left, she could stick her finger into it. He does not have a history of cyst/abscess before. Additionally patient has been complaining of increased thirst and urination, he was found to have high blood sugar, he denies being a d iabetic. Additionally reports low energy level. No vomiting or diarrhea. No chest pain or shortness of breath. - Related Data Allergies/Adverse Reactions: fire ant Allergy (Severe, Verified 10/16/18 00:31) Anaphylaxis Past Medical History - General Information source: Patient - Social History Smoking Status: Current Every Day Smoker Chew tobacco use (# tins/day): No Frequency of alcohol use: Social Drug Abuse: None Family History: Reviewed & Not Pertinent, CAD - Father had a GA in his 30s, Hypertension - Past Medical History Cardiac Medical History: Reports: Hx Hypercholesterolemia, Hx Hypertension Pulmonary Medical History: Reports: Hx Pneumonia Neurological Medical History: Denies: Hx Migraine, Hx Seizures Endocrine Medical History: Denies: Hx Diabetes Mellitus Type 1, Hx Diabetes Mellitus Type 2, Hx Hyperthyroidism, Hx Hypothyroidism Renal/ Medical History: Denies: Hx Peritoneal Dialysis GI Medical History: Reports: Hx Gastroesophageal Reflux Disease Musculoskeletal Medical History: Denies Hx Fibromyalgia, Denies Hx Gout Review of Systems - Review of Systems Constitutional: No symptoms reported EENT: No symptoms reported Cardiovascular: No symptoms reported Respiratory: No symptoms reported Gastrointestinal: No symptoms reported Genitourinary: Frequency Male Genitourinary: No symptoms reported Musculoskeletal: No symptoms reported Skin: No symptoms reported Hematologic/Lymphatic: No symptoms reported Neurological/Psychological: No symptoms reported Physical Exam - Vital signs Vitals: Temp 98.4 F 02/10/20 21:22 Interpretation: No: Febrile - General General appearance: Appears well In distress: None - HEENT Head: Normocephalic, Atraumatic Extraocular movements intact: Yes Pupils: PERRL - Respiratory Breath sounds: Normal - Cardiovascular Rhythm: Regular Heart sounds: Normal auscultation - Abdominal Inspection: Obese Tenderness: Nontender - Rectal Notes: At the proximal aspect of the intergluteal cleft, there appears to be evidence of a ruptured pilonidal cyst, there currently is no area of fluctuance, there is mild erythema, scant drainage. There is no suspicious area of fluctuance around the rectum. - Extremities General lower extremity: No: Edema - Neurological Neuro grossly intact: Yes Cognition: Normal Orientation: AAOx4 - Psychological Associated symptoms: Normal affect - Skin Skin Temperature: Warm Course - Re-evaluation Re-evalutation: 34-year-old male with what appears to be ruptured pilonidal cyst, there currently is no area of fluctuance that needs draining. Given the scant amount of drainage, feel that antibiotics is warranted, will give first dose of Bactrim here. Additionally patient has symptoms of hyperglycemia along with hyperglyc emia, presumed that he is a diabetic. He is to be given fluids to help down trend glucose. He currently is in the process of applying for Medicaid, has not yet been able to see a primary care doctor. I discussed with him that I can write a prescription for metformin, however within this upcoming month he must try his best to be established. He voiced understanding. 02/11/20 01:52 Glucose has down trended. Prescription for Bactrim and metformin given. Discussed need to establish with PCP as soon as possible. Return precautions given, stable at time of discharge. - Vital Signs Vital signs: Temp Pulse Resp BP Pulse Ox 97.6 F 82 20 150/84 H 93 02/11/20 02:11 02/11/20 02:11 02/11/20 02:11 02/11/20 02:11 02/11/20 02:11 - Laboratory Result Diagrams: 02/10/20 22:45 02/10/20 22:45 Laboratory results interpreted by me: 02/10/20 02/10/20 02/10/20 21:32 22:45 22:45 Glucose 336 H POC Glucose 297 H Alkaline Phosphatase 139 H Urine Glucose (UA) >=500 H 02/11/20 00:33 Glucose POC Glucose 302 H Alkaline Phosphatase Urine Glucose (UA) Discharge - Discharge Clinical Impression: Hyperglycemia, Pilonidal abscess Condition: Stable Disposition: HOME, SELF-CARE Prescriptions: Sulfamethoxazole/Trimethoprim [Bactrim Ds Tablet] 2 tab PO BID #28 tablet Metformin HCl [Glucophage 500 mg Tablet] 500 mg PO BID #60 tablet
[2020-02-11 00:10] LABS: THYROID STIMULATING HORMONE 3.51 uIU/mL (0.47-4.68)
[2020-02-11 00:20] LABS: FREE T4 (FREE THYROXINE) 0.84 ng/dL (0.78-2.19)
[2020-02-11 00:21] LABS: FREE T3 4.66 pg/mL (2.77-5.27)
[2020-02-11 02:19] VITALS: BP 150/84
== END 2020-02-11 02:19 | disposition home or self-care (01) ==
LOC: ER 21:17
DX: L05.01 Pilonidal cyst with abscess (principal); R73.9 Hyperglycemia, unspecified; F17.200 Nicotine dependence, unspecified, uncomplicated; I10 Essential (primary) hypertension
CPT/HCPCS: 99284; 96360; 96361; 36415; 84439; 82962; 84443; 85025; 80053; 81001; 84481; 82803; J7030; J7120